=== PATIENT | female | born 1960 | race Caucasian/White ===

== ENCOUNTER 2020-06-10 12:01 | Emergency (ER) | payer OTHER, SELFPAY ==
[2020-06-10 12:27] VITALS: BP 119/84; PULSE 90; RESP 16; TEMP 37.3; O2SAT 99
--- NOTE | 2020-06-10 12:41 | ED.GENADULT ---
HPI - General Adult General Chief complaint: Ear Stated complaint: Ear pain Time Seen by Provider: 06/10/20 12:41 Source: patient and RN notes reviewed Mode of arrival: ambulatory Limitations: no limitations History of Present Illness HPI narrative: 60-year-old female presents with complaints of left otalgia, nasal congestion, and rhinorrhea for the past 2 days. Symptoms increased over the past 24 hours with clogging feeling, echoing, and popping. Denies drainage, decrease hearing, or tinnitus. Denies injury to ear. Rhinorrhea and nasal congestion. Denies cough and chest congestion. No high fevers or chills. Denies nausea, vomiting, and dizziness. LMP, Post-menopausal. The patient reports she have not been diagnosed with COVID-19. The patient reports she is not waiting for the results of a COVID-19 lab test. The patient reports she do not have fever, chills, weakness, fatigue, myalgia, or facial swelling. The patient reports she do not have a new or worsening cough or shortness of breath. Denies chest pain. The patient reports she do not have any loss of taste, sore throat, and diarrhea. Tolerating po intake well. Denies recent traveling. Denies concerns for COVID-19 or exposures been home with limited outdoor exposure except for essential household needs and return home. At this time, patient is not suspected of having COVID-19. Some parts of this dictation were generated by voice recognition software and may contain typographical and/or grammatical inaccuracies. Related Data Home Medications Medication Instructions Recorded Confirmed acyclovir 400 mg PO DIRECTED 06/10/20 06/10/20 cyclobenzaprine 10 mg PO DIRECTED 06/10/20 06/10/20 fluoxetine 40 mg PO DAILY 06/10/20 06/10/20 gabapentin 100 mg PO DAILY 06/10/20 06/10/20 hydrocodone-acetaminophen 1 tablet PO DIRECTED 06/10/20 06/10/20 hydroxyzine HCl 50 mg PO DIRECTED 06/10/20 06/10/20 meloxicam 15 mg PO DIRECTED 06/10/20 06/10/20 olanzapine 10 mg PO DIRECTED 06/10/20 06/10/20 trazodone 100 mg PO DIRECTED 06/10/20 06/10/20 Allergies Allergy/AdvReac Type Severity Reaction Status Date / Time No Known Allergies Allergy Unverified 06/10/20 12:20 Review of Systems Review of Systems: Narrative: CONSTITUTIONAL: Denies fever, chills, sweats. EYES: Denies visual changes, redness, discharge. ENT: Denies sore throat, ear drainage. Complains of left otalgia, nasal congestion, and rhinorrhea. CARDIOVASCULAR: Denies chest pain, palpitations, edema. RESPIRATORY: Denies dyspnea, wheezing, cough. GASTROINTESTINAL: Denies abdominal pain, nausea, vomiting, diarrhea. GENITOURINARY: Denies dysuria, hematuria, abnormal discharge. SKIN: Denies rash or itching. MUSCULOSKELETAL: Denies acute back pain, joint pain, or myalgia. NEUROLOGIC: Denies numbness or focal weakness. PSYCHIATRIC: Denies anxiety or depression. All systems reviewed & are unremarkable except as noted in HPI and below. [facility] Past Medical History Medical History (Updated 06/10/20 @ 14:26 by MONET Alegria) Anxiety Back pain Jones's esophagus COPD (chronic obstructive pulmonary disease) Depression Emphysema lung Hernia Hypercholesteremia Pancreatitis Peripheral neuropathy Post-menopausal Pulmonary embolism X2 in 2014 Sleep apnea Surgical History Surgical History (Updated 06/10/20 @ 14:24 by MONET Alegria) History of biopsy Lesion of the soft palate History of cervical spinal surgery L5-S1 fusion Family History Family History Father Family history of lung cancer, Onset Age: 80 Social History Social History Smoking status: Never smoker Second hand tobacco smoke exposure: Yes Alcohol intake: never Comments At time of signature, I have reviewed and agree with nursing past medical, surgical, social, and family histo
== END 2020-06-10 12:53 | disposition home or self-care (01) ==
PROVIDERS: Emergency Provider Nurse Practitioner Family; PCP Internal Medicine Gastroenterology
DX: H66.002 Acute suppurative otitis media without spontaneous rupture of ear drum, left ear (principal); F41.9 Anxiety disorder, unspecified; F32.9 Major depressive disorder, single episode, unspecified; K22.70 Barrett's esophagus without dysplasia; J44.9 Chronic obstructive pulmonary disease, unspecified; E78.00 Pure hypercholesterolemia, unspecified; G62.9 Polyneuropathy, unspecified; Z86.711 Personal history of pulmonary embolism; G47.30 Sleep apnea, unspecified
CPT/HCPCS: 99213; G0463

== ENCOUNTER 2021-01-31 09:25 | Outpatient (CLI) | payer OTHER, SELFPAY ==
--- NOTE | ~2021-01-31 | US_ITS ---
EXAMINATION: US soft tissue upper back EXAM DATE: 01/31/2021 10:24 INDICATION: Subcutaneous mass right upper back, lump. Tenderness. TECHNIQUE: Multiple grayscale and Doppler images of the symptomatic right back region were obtained ( by a technologist who performed the scan) and subsequently reviewed. There is no prior study for yaz godoy. FINDINGS: Scanning in the area of concern demonstrates subcutaneous region, between the skin and musculature de ep to this, appears to be focal region of similar echogenicity to the small amount of subcutaneous fa t. Region measures 4.0 x 5.2 x 0.8 cm, and appears to cause mass effect on the musculature. Vasculari ty was demonstrated. Most likely an encapsulated lipoma but please clinically correlate. 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 Reviewed, dictated and finalized at location A.
== END 2021-01-31 09:26 | disposition home or self-care (01) ==
PROVIDERS: PCP Internal Medicine Gastroenterology; Visit Provider Internal Medicine Gastroenterology
DX: R22.9 Localized swelling, mass and lump, unspecified (principal)
CPT/HCPCS: 76604

== ENCOUNTER 2021-02-24 14:29 | Outpatient (CLI) | payer OTHER, SELFPAY ==
--- NOTE | ~2021-02-24 | CT_ITS ---
EXAMINATION: CT diagnostic chest w con DATE: 02/24/2021 15:18 INDICATION: Posterior upper chest mass. History of emphysema. TECHNIQUE: Computed tomography (CT) of the chest was performed with 75 cc Omnipaque 350 intravenous c ontrast. The dose-length product was 142.39 mGy-cm. Automated exposure control and iterative reconstr uction technique were employed. COMPARISON: CT dated 12/11/2013 FINDINGS: No thoracic lymphadenopathy. No evidence for aortic aneurysm or dissection. Heart size norm al. No significant pleural or pericardial effusion. No soft tissue mass is identified. There are glan d is unremarkable. There is emphysema. There is atelectasis of the lung bases. There is calcified gra nuloma in the left lower lung zone. There are calcified mediastinal lymph nodes, consistent with lunchroom mother william granulomatous disease. No pneumothorax. No endobronchial lesions. No thoracic lymphadenopathy. No focal soft tissue masses are identified. Fatty infiltration of the liver. Otherwise, the upper abdom en is unremarkable. IMPRESSION: 1. No focal soft tissue mass is identified. 2: Emphysema. 3: Atelectasis the lung bases. 4: Hepatic steatosis. Reviewed, dictated and finalized at location B.
== END 2021-02-24 14:30 | disposition home or self-care (01) ==
PROVIDERS: PCP Internal Medicine Gastroenterology
DX: R22.2 Localized swelling, mass and lump, trunk (principal); K76.0 Fatty (change of) liver, not elsewhere classified; J43.9 Emphysema, unspecified
CPT/HCPCS: 71260; Q9967

== ENCOUNTER 2023-02-16 10:39 | Emergency (ER) | payer OTHER, SELFPAY ==
--- NOTE | 2023-02-16 10:41 | ED.URI ---
HPI - URI/Sore Throat General Chief Complaint: Upper Respiratory Infection Stated Complaint: Sore Throat Time Seen by Provider: 02/16/23 10:41 Source: patient Mode of arrival: ambulatory Limitations: no limitations History of Present Illness HPI Narrative: Patient is a 62-year-old female who presents with several days of throat irritation followed by increased pain this morning. Patient reports mild discomfort to left ear related to left-sided throat pain. Patient has gargled warm salt water with only mild relief. Patient has not taken any [id number] medication. Reports history of tonsillitis. History of emphysema with chronic cough Related Data Home Medications Medication Instructions Recorded Confirmed acyclovir 400 mg tablet 400 mg PO DIRECTED 06/10/20 02/16/23 cyclobenzaprine 10 mg tablet 10 mg PO DIRECTED 06/10/20 02/16/23 fluoxetine 40 mg capsule 40 mg PO DAILY 06/10/20 02/16/23 hydrocodone 7.5 mg-acetaminophen 1 tablet PO DIRECTED 06/10/20 02/16/23 325 mg tablet hydroxyzine HCl 50 mg tablet 50 mg PO DIRECTED 06/10/20 02/16/23 olanzapine 10 mg tablet 10 mg PO DIRECTED 06/10/20 02/16/23 trazodone 100 mg tablet 100 mg PO DIRECTED 06/10/20 02/16/23 albuterol sulfate 90 mcg/actuation 90 mcg inhalation DIRECTED 02/16/23 02/16/23 aerosol inhaler atorvastatin 20 mg tablet 20 mg DIRECTED 02/16/23 02/16/23 Allergies Allergy/AdvReac Type Severity Reaction Status Date / Time No Known Allergies Allergy Unverified 06/10/20 12:20 Review of Systems Review of Systems: All systems reviewed & are unremarkable except as noted in HPI and below Constitutional: Constitutional: Denies body ache(s), Denies chills, Denies fatigue, Denies fever(s), Denies headache(s), Denies malaise and Denies weakness Eyes: Eyes: Denies blurry vision, Denies itchy eyes and Denies loss of vision ENT: Reports otalgia, Denies headache(s), Denies nasal congestion, Denies sinus pain and Reports sore throat Cardiovascular: Cardiovascular: Denies chest pain, Denies irregular heart rhythm and Denies dyspnea Respiratory: Respiratory: Reports cough and Denies dyspnea Gastrointestinal: Gastrointestinal: Denies abdominal pain, Denies diarrhea, Denies nausea and Denies vomiting Musculoskeletal: Musculoskeletal: Denies back pain, Denies myalgias and Denies arthralgias Integumentary/Breasts: Skin/Breast: Denies pruritus and Denies rash Neurologic: Denies headache(s), Denies loss of vision and Denies weakness Psychiatric: Psychiatric: Reports no additional psychiatric complaints Endocrine: Endocrine: Denies fatigue Allergic/Immunologic: Allergic/Immunologic: Denies itchy eyes PMFSH Past Medical History Medical History (Updated 02/16/23 @ 11:04 by Lesley House, MADONNA) Anxiety Back pain Jones's esophagus COPD (chronic obstructive pulmonary disease) Depression Emphysema lung Hernia Hypercholesteremia Pancreatitis Peripheral neuropathy Post-menopausal Pulmonary embolism X2 in 2013 Sleep apnea Surgical History Surgical History (Updated 06/10/20 @ 14:24 by MONET Alegria) History of biopsy Lesion of the soft palate History of cervical spinal surgery L5-S1 fusion Family History Family History Father Family history of lung cancer, Onset Age: 80 Social History Social History Smoking status: Never smoker Second hand tobacco smoke exposure: Yes Alcohol intake: never Comments At time of signature, agree with nursing past medical, surgical, social and family history. There is no relevant family history pertinent to the presenting complaint. Exam Const: General: cooperative, healthy appearing, comfortable, no acute distress and well nourished Nutritional Appearance: well nourished Orientation/consciousness: patient oriented x3 Limitations: no limitations
[2023-02-16 10:50] VITALS: BP 122/79; PULSE 86; RESP 12; TEMP 37.5; O2SAT 97
== END 2023-02-16 11:09 | disposition home or self-care (01) ==
PROVIDERS: Emergency Provider Nurse Practitioner Family; PCP Internal Medicine Gastroenterology
DX: J03.90 Acute tonsillitis, unspecified (principal); F41.9 Anxiety disorder, unspecified; F32.A Depression, unspecified; J43.9 Emphysema, unspecified; Z79.891 Long term (current) use of opiate analgesic
CPT/HCPCS: 87081; 87880; 99213; G0463

== ENCOUNTER 2023-11-29 15:08 | Emergency (ER) | payer OTHER, SELFPAY ==
[2023-11-29 15:21] VITALS: BP 133/75; PULSE 89; RESP 16; TEMP 37.6; O2SAT 97
--- NOTE | 2023-11-29 15:28 | ED.DENTAL ---
HPI - Dental/Oral General Chief complaint: Dental/Oral Stated complaint: thrush Time Seen by Provider: 11/29/23 15:29 Source: patient Mode of arrival: ambulatory Limitations: no limitations History of Present Illness HPI Narrative: Leah hudson is a 63-year-old female patient presenting to the clinic today with complaints of possible thrush-reports this has been going on for the last 1-2 days. States she is just finished up to rounds of antibiotics and is using her albuterol inhaler for bronchitis. Related Data Home Medications Medication Instructions Recorded Confirmed acyclovir 400 mg tablet 400 mg PO DIRECTED 06/10/20 11/29/23 cyclobenzaprine 10 mg tablet 10 mg PO DIRECTED 06/10/20 11/29/23 fluoxetine 40 mg capsule 40 mg PO DAILY 06/10/20 11/29/23 hydrocodone 7.5 mg-acetaminophen 1 tablet PO DIRECTED 06/10/20 11/29/23 325 mg tablet hydroxyzine HCl 50 mg tablet 50 mg PO DIRECTED 06/10/20 11/29/23 olanzapine 10 mg tablet 10 mg PO DIRECTED 06/10/20 11/29/23 trazodone 100 mg tablet 100 mg PO DIRECTED 06/10/20 11/29/23 albuterol sulfate 90 mcg/actuation 90 mcg inhalation DIRECTED 02/16/23 11/29/23 aerosol inhaler atorvastatin 20 mg tablet 20 mg DIRECTED 02/16/23 11/29/23 cetirizine 10 mg tablet 10 mg PO DAILY 11/29/23 11/29/23 omeprazole 40 mg capsule,delayed 40 mg PO DAILY 11/29/23 11/29/23 release primidone 50 mg tablet 50 mg PO DAILY 11/29/23 11/29/23 Allergies Allergy/AdvReac Type Severity Reaction Status Date / Time No Known Allergies Allergy Verified 11/29/23 15:11 Review of Systems Review of Systems: Pertinent positives per HPI. Patient denies any fever, chills, rash, headache, visual changes, dizziness, cough, runny nose, sore throat, shortness of breath, chest pain, palpitations, nausea, vomiting, diarrhea, constipation, abdominal pain, or any urinary issues. PMFSH Past Medical History Medical History Anxiety Back pain Jones's esophagus COPD (chronic obstructive pulmonary disease) Depression Emphysema lung Hernia Hypercholesteremia Pancreatitis Peripheral neuropathy Post-menopausal Pulmonary embolism X2 in 2014 Sleep apnea Surgical History Surgical History History of biopsy Lesion of the soft palate History of cervical spinal surgery L5-S1 fusion Family History Family History Father Family history of lung cancer, Onset Age: 80 Social History Social History Smoking status: Never smoker Second hand tobacco smoke exposure: Yes Alcohol intake: never Comments At the time of my signature, I reviewed and agree with the nursing past medical, surgical, social, and family history. There is no relevant family history pertinent to the patient complaint. Exam Narrative: General: Well-developed, well nourished, in no apparent distress Head: Normocephalic, atraumatic Eyes: Pupils equally round and reactive to light bilaterally, EOM intact, sclera and conjunctive clear, no discharge, lids normal Ears: TMs intact and clear, ear canals clear, no drainage, grossly hearing normal. Nose: Nares patent, no discharge, no inflammation, no sinus tenderness. Mouth: Oropharynx without lesions or masses, good dentition, MMM. Neck: Supple, trachea midline, no enlargement of anterior or posterior cervical nodes, no thyroid masses or goiter palpable. Cardio: Regular rate and rhythm, s1 and s2 normal, no murmur appreciated. Resp: Clear to auscultation bilaterally anteriorly and posteriorly, no rhonchi, rales, wheezing or rubs Course Course Emergency Course: Portions of this record may have been created with voice recognition software. Level of Care: Express Care Visit Vital Signs Vital signs: Vital Signs
== END 2023-11-29 15:47 | disposition home or self-care (01) ==
PROVIDERS: Emergency Provider Nurse Practitioner Family; PCP Internal Medicine Gastroenterology
DX: B37.0 Candidal stomatitis (principal); K22.70 Barrett's esophagus without dysplasia; J44.9 Chronic obstructive pulmonary disease, unspecified; E78.00 Pure hypercholesterolemia, unspecified; G62.9 Polyneuropathy, unspecified; F32.A Depression, unspecified; F41.9 Anxiety disorder, unspecified; Z86.711 Personal history of pulmonary embolism
CPT/HCPCS: 99213; G0463

== ENCOUNTER 2024-02-06 07:37 | Outpatient (CLI) | payer OTHER, SELFPAY ==
--- NOTE | ~2024-02-06 | CT_ITS ---
CT Scan of the Chest without Contrast: Clinical Indication: Lung cancer screening, nicotine dependence Technique: Contiguous sections were acquired throughout the chest without intravenous contrast. Dose reduction technique was used on this scan by utilizing automated exposure control and iterative recon struction technique. The dose-length product (DLP) was 67.31 mGy-cm. COMPARISON: 02/24/2021 Findings: There is no evidence of any significant mediastinal, hilar or axillary lymphadenopathy. The mediastin al soft tissues appear normal. There is no evidence of pleural or pericardial effusion. Moderate emphysema present. Stable 2 mm right middle lobe pulmonary nodule present. Calcified left lo wer lobe granuloma present. Images through the upper abdomen reveal no abnormalities. Impression: Lung RADS 2: Benign appearance. 12 month follow-up screening CT advised. Moderate emphysema. Reviewed, dictated and finalized at [facility]. Impression: Lung RADS 2: Benign appearance. 12 month follow-up screening CT advised. Moderate emphysema.
== END 2024-02-06 07:38 | disposition home or self-care (01) ==
PROVIDERS: PCP Internal Medicine Gastroenterology
DX: Z12.2 Encounter for screening for malignant neoplasm of respiratory organs (principal); J43.9 Emphysema, unspecified; Z72.0 Tobacco use
CPT/HCPCS: 71271

== ENCOUNTER 2024-02-19 08:11 | Outpatient (CLI) | payer OTHER, SELFPAY ==
--- NOTE | 2024-02-19 10:42 | P.PCNPFT_ITS ---
PFT Procedure Performed PFT Procedure Performed Plethysmography (Lung Vol) Diffusing Cap (DLCO) Flow Vol Loop Spirometry w/o Bronchodil PFT Interpretation Lung volumes were measured with the body plethysmography method. Lung volumes are unremarkable. Spirometry showed normal expiratory flow rates and a dimin ished FEV1 to FVC ratio 51%, indicative of obstructive airway disease. No post bronchodilator study was conducted. Lung diffusion capacity is severely reduced at 42% predicted. The diminished lung diffusion capacity coupled with the normal alveolar volume in the current setting may indicate emphysema with preserved lung volume, pulmonary vascular abnormality or anemia. Clinical correlation advised. The flow-volume loop is consistent with emphysema. Impression: Mild obstructive airway disease. Severely reduced lung diffusion capacity.
== END 2024-02-19 08:12 | disposition home or self-care (01) ==
LOC: ANHPFT 08:13
PROVIDERS: PCP Internal Medicine Gastroenterology
DX: Z72.0 Tobacco use (principal); R94.2 Abnormal results of pulmonary function studies
CPT/HCPCS: 94375; 94726; 94729

== ENCOUNTER 2024-04-16 08:25 | Emergency (ER) | payer OTHER, SELFPAY ==
[2024-04-16 08:41] VITALS: BP 151/95; PULSE 60; RESP 16; TEMP 37.2; O2SAT 98
[2024-04-16 08:44] VITALS: BP 151/95; PULSE 60; RESP 16; TEMP 37.2; O2SAT 98
--- NOTE | 2024-04-16 08:45 | ED.DENTAL ---
HPI - Dental/Oral General Chief complaint: Dental/Oral Stated complaint: Dental Pain Time Seen by Provider: 04/16/24 08:45 Source: patient, RN notes reviewed and old records reviewed Mode of arrival: ambulatory Limitations: no limitations History of Present Illness HPI Narrative: Patient presents with complaints of right-sided lower dental pain that extends to the ear. She reports that this has been present for approximately 3 days, worsening. She has been taking ibuprofen with moderate relief. She denies any fever, chills, sweats. She denies injury or trauma. She denies any active drainage. She denies any fever, chills, sweats. She is able to eat and drink, but she cannot chew on the right side secondary to pain. She is able to manage her own secretions. No drooling. There is no facial or neck swelling. She voices no other concerns or complaints today. She reports she did try to go to the dentist, but cannot get an appointment for 4 months Related Data Home Medications Medication Instructions Recorded Confirmed acyclovir 400 mg tablet 400 mg PO DIRECTED 06/10/20 04/16/24 cyclobenzaprine 10 mg tablet 10 mg PO DIRECTED 06/10/20 04/16/24 fluoxetine 40 mg capsule 40 mg PO DAILY 06/10/20 04/16/24 hydrocodone 7.5 mg-acetaminophen 1 tablet PO DIRECTED 06/10/20 04/16/24 325 mg tablet hydroxyzine HCl 50 mg tablet 50 mg PO DIRECTED 06/10/20 04/16/24 olanzapine 10 mg tablet 10 mg PO DIRECTED 06/10/20 04/16/24 trazodone 100 mg tablet 100 mg PO DIRECTED 06/10/20 04/16/24 albuterol sulfate 90 mcg/actuation 90 mcg inhalation DIRECTED 02/16/23 04/16/24 aerosol inhaler atorvastatin 20 mg tablet 20 mg DIRECTED 02/16/23 04/16/24 cetirizine 10 mg tablet 10 mg PO DAILY 11/29/23 04/16/24 omeprazole 40 mg capsule,delayed 40 mg PO DAILY 11/29/23 04/16/24 release primidone 50 mg tablet 50 mg PO DAILY 11/29/23 04/16/24 Allergies Allergy/AdvReac Type Severity Reaction Status Date / Time No Known Allergies Allergy Verified 04/16/24 08:42 Review of Systems Review of Systems: All systems reviewed & are unremarkable except as noted in HPI and below Constitutional: Constitutional: Reports no additional constitutional complaints ENT: Reports system reviewed and no additional complaints, except as documented, Reports dental pain, Denies dysphagia, Reports otalgia, Reports facial pain, Denies lip swelling and Denies tongue swelling Cardiovascular: Cardiovascular: Reports no additional cardiovascular complaints Respiratory: Respiratory: Reports no additional respiratory complaints Gastrointestinal: Gastrointestinal: Reports no additional gastrointestinal complaints [facility] Past Medical History Medical History Anxiety Back pain Jones's esophagus COPD (chronic obstructive pulmonary disease) Depression Emphysema lung Hernia Hypercholesteremia Pancreatitis Peripheral neuropathy Post-menopausal Pulmonary embolism X2 in 2013 Sleep apnea Surgical History Surgical History History of biopsy Lesion of the soft palate History of cervical spinal surgery L5-S1 fusion Family History Family History Father Family history of lung cancer, Onset Age: 80 Social History Social History Smoking status: Never smoker Second hand tobacco smoke exposure: Yes Alcohol intake: never Comments At the time of my signature, I reviewed and agree with the nursing past medical, surgical, social, and family history. There is no relevant family history pertinent to the patient complaint. Exam Const: General: cooperative, no acute distress, alert and awake Orientation/consciousness: oriented to person, oriented to place and oriented to time HENMT: Head: normal to inspection Ears:
== END 2024-04-16 09:00 | disposition home or self-care (01) ==
PROVIDERS: Emergency Provider Nurse Practitioner Family; PCP Internal Medicine Gastroenterology
DX: K04.7 Periapical abscess without sinus (principal); K22.70 Barrett's esophagus without dysplasia; J44.9 Chronic obstructive pulmonary disease, unspecified; E78.00 Pure hypercholesterolemia, unspecified; G62.9 Polyneuropathy, unspecified; Z86.711 Personal history of pulmonary embolism; F41.9 Anxiety disorder, unspecified; F32.A Depression, unspecified
CPT/HCPCS: 99213; G0463

== ENCOUNTER 2024-04-20 08:23 | Emergency (ER) | payer OTHER, SELFPAY ==
[2024-04-20 08:31] VITALS: BP 126/76; PULSE 84; RESP 18; TEMP 37.1; O2SAT 98
--- NOTE | 2024-04-20 08:34 | ED.GENADULT ---
HPI - General Adult General Chief complaint: Extremity Problem,Nontraumatic Stated complaint: Left Hand Finger Pain Source: patient Mode of arrival: ambulatory Limitations: no limitations History of Present Illness HPI narrative: 63-year-old female presented for c/o left thumb pain with green skin near the nail bed. She first noticed this about a 10 days ago and thought it was a hangnail, trimmed the skin with cuticle scissors. Over the last 4 days it has gotten worse. She has been putting Neosporin and hydrogen peroxide on it. She denies any discharge, fevers, or chills. Currently taking amoxicillin as prescribed 04/16 for dental infection. Related Data Home Medications Medication Instructions Recorded Confirmed acyclovir 400 mg tablet 400 mg PO DIRECTED 06/10/20 04/20/24 cyclobenzaprine 10 mg tablet 10 mg PO DIRECTED 06/10/20 04/20/24 fluoxetine 40 mg capsule 40 mg PO DAILY 06/10/20 04/20/24 hydrocodone 7.5 mg-acetaminophen 1 tablet PO DIRECTED 06/10/20 04/20/24 325 mg tablet hydroxyzine HCl 50 mg tablet 50 mg PO DIRECTED 06/10/20 04/20/24 olanzapine 10 mg tablet 10 mg PO DIRECTED 06/10/20 04/20/24 trazodone 100 mg tablet 100 mg PO DIRECTED 06/10/20 04/20/24 albuterol sulfate 90 mcg/actuation 90 mcg inhalation DIRECTED 02/16/23 04/20/24 aerosol inhaler atorvastatin 20 mg tablet 20 mg DIRECTED 02/16/23 04/20/24 cetirizine 10 mg tablet 10 mg PO DAILY 11/29/23 04/20/24 omeprazole 40 mg capsule,delayed 40 mg PO DAILY 11/29/23 04/20/24 release primidone 50 mg tablet 50 mg PO DAILY 11/29/23 04/20/24 Allergies Allergy/AdvReac Type Severity Reaction Status Date / Time No Known Allergies Allergy Verified 04/20/24 08:26 Review of Systems Review of Systems: CONSTITUTIONAL: Denies body aches, fever, chills, or sweats. EYES: Denies visual changes, redness, or discharge. ENT: Denies rhinorrhea, congestion CARDIOVASCULAR: Denies chest pain, palpitations, or edema. RESPIRATORY: Denies cough or dyspnea. GASTROINTESTINAL: Denies abdominal pain, nausea, vomiting, or diarrhea. SKIN: Reports pain to the left thumb. Denies rash. MUSCULOSKELETAL: Denies back pain, joint pain, or myalgia. NEUROLOGIC: Denies headache, numbness, tingling, or weakness. [facility] Past Medical History Medical History Anxiety Back pain Jones's esophagus COPD (chronic obstructive pulmonary disease) Depression Emphysema lung Hernia Hypercholesteremia Pancreatitis Peripheral neuropathy Post-menopausal Pulmonary embolism X2 in 2014 Sleep apnea Surgical History Surgical History History of biopsy Lesion of the soft palate History of cervical spinal surgery L5-S1 fusion Family History Family History Father Family history of lung cancer, Onset Age: 80 Social History Social History Smoking status: Never smoker Second hand tobacco smoke exposure: Yes Alcohol intake: never Comments At time of signature, I have reviewed and agree with nursing past medical, surgical, social and family history unless otherwise noted. Please see nursing chart for further information. There is no relevant family history pertinent to the presenting complaint Exam Narrative: GENERAL: Well-appearing. No apparent distress. HEAD: Normocephalic, atraumatic. EYES: Conjunctivae clear and EOMI. NECK: Supple. CHEST: Clear to auscultation. HEART: Regular rate and rhythm. S1 and S2 noted. SKIN: Warm, dry, and intact. Small green pustule on the ulnar aspect of the left 1st digit nailbed, no active drainage, mild tenderness with palpation. NEURO: Alert and oriented x3. Course Course Emergency Course: Patient is aware of diagnosis, understands and agrees to treatment plan. Anticipatory guid
== END 2024-04-20 09:05 | disposition home or self-care (01) ==
PROVIDERS: Emergency Provider Nurse Practitioner Family; PCP Internal Medicine Gastroenterology
DX: L03.012 Cellulitis of left finger (principal); K22.70 Barrett's esophagus without dysplasia; J44.9 Chronic obstructive pulmonary disease, unspecified; E78.00 Pure hypercholesterolemia, unspecified; Z86.711 Personal history of pulmonary embolism; F41.9 Anxiety disorder, unspecified; F32.A Depression, unspecified; G62.9 Polyneuropathy, unspecified
CPT/HCPCS: 10060; 99212; G0463

== ENCOUNTER 2024-07-06 08:08 | Emergency (ER) | payer OTHER, SELFPAY ==
--- NOTE | 2024-07-06 08:19 | ED.DENTAL ---
HPI - Dental/Oral General Chief complaint: Dental/Oral Stated complaint: thrush Time Seen by Provider: 07/06/24 08:19 Source: patient Mode of arrival: ambulatory Limitations: no limitations History of Present Illness HPI Narrative: 64 yo F presents with c/o soreness to tongue with white lesions. States mouth feels thick. Denies sore throat. hx of thrush. States that she has been rinsing after using her inhalers. All Systems reviewed and negative except as noted above. Related Data Home Medications Medication Instructions Recorded Confirmed acyclovir 400 mg tablet 400 mg PO DIRECTED 06/10/20 07/06/24 cyclobenzaprine 10 mg tablet 10 mg PO DIRECTED 06/10/20 07/06/24 fluoxetine 40 mg capsule 40 mg PO DAILY 06/10/20 07/06/24 hydrocodone 7.5 mg-acetaminophen 1 tablet PO DIRECTED 06/10/20 07/06/24 325 mg tablet hydroxyzine HCl 50 mg tablet 50 mg PO DIRECTED 06/10/20 07/06/24 olanzapine 10 mg tablet 10 mg PO DIRECTED 06/10/20 07/06/24 trazodone 100 mg tablet 100 mg PO DIRECTED 06/10/20 07/06/24 albuterol sulfate 90 mcg/actuation 90 mcg inhalation DIRECTED 02/16/23 07/06/24 aerosol inhaler atorvastatin 20 mg tablet 20 mg DIRECTED 02/16/23 07/06/24 cetirizine 10 mg tablet 10 mg PO DAILY 11/29/23 07/06/24 omeprazole 40 mg capsule,delayed 40 mg PO DAILY 11/29/23 07/06/24 release primidone 50 mg tablet 50 mg PO DAILY 11/29/23 07/06/24 Allergies Allergy/AdvReac Type Severity Reaction Status Date / Time No Known Allergies Allergy Verified 07/06/24 08:13 Review of Systems Review of Systems: CONSTITUTIONAL: Denies fever, chills, or sweats. EYES: Denies visual changes, redness, or discharge. ENT: Denies rhinorrhea, congestion, sore throat, or otalgia. reports white lesions and soreness to tongue. CARDIOVASCULAR: Denies chest pain, palpitations, or edema. RESPIRATORY: Denies cough or dyspnea. GASTROINTESTINAL: Denies abdominal pain, nausea, vomiting, or diarrhea. GENITOURINARY: Denies dysuria or hematuria. SKIN: Denies rash or itching. MUSCULOSKELETAL: Denies back pain, joint pain, or myalgia. NEUROLOGIC: Denies headache, numbness, or weakness. PSYCHIATRIC: Denies anxiety or depression. All other systems reviewed are negative, except as documented in HPI. [facility] Past Medical History Medical History Anxiety Back pain Jones's esophagus COPD (chronic obstructive pulmonary disease) Depression Emphysema lung Hernia Hypercholesteremia Pancreatitis Peripheral neuropathy Post-menopausal Pulmonary embolism X2 in 2014 Sleep apnea Surgical History Surgical History History of biopsy Lesion of the soft palate History of cervical spinal surgery L5-S1 fusion Family History Family History Father Family history of lung cancer, Onset Age: 80 Social History Social History Smoking status: Never smoker Second hand tobacco smoke exposure: Yes Alcohol intake: never Comments At time of signature, agree with nursing past medical, surgical, social and family history. There is no relevant family history pertinent to the presenting complaint. Exam Narrative: GENERAL: This is a well-nourished, well-developed patient, in no apparent distress. HEAD: normocephalic, atraumatic. EYES: PERRL. Sclera clear/white. Vision is grossly intact. EARS: External ears normal NOSE: External nose normal MOUTH: thick white plaques to tongue NECK: Neck supple, non-tender without lymphadenopathy, masses or thyromegaly. CARDIOVASCULAR: Regular rate and rhythm without murmurs, gallops, or rubs. RESPIRATORY: Clear to auscultation. Breath sounds equal bilaterally. No wheezes, rales, or rhonchi. SKIN: warm, Dry, intact with no suspicious lesions or rash, good texture and turgor.
[2024-07-06 08:20] VITALS: BP 116/60; PULSE 50; RESP 16; TEMP 36; O2SAT 96
== END 2024-07-06 08:33 | disposition home or self-care (01) ==
PROVIDERS: Emergency Provider Nurse Practitioner Family; PCP Internal Medicine Gastroenterology
DX: B37.0 Candidal stomatitis (principal); K22.70 Barrett's esophagus without dysplasia; J44.9 Chronic obstructive pulmonary disease, unspecified; E78.00 Pure hypercholesterolemia, unspecified; G62.9 Polyneuropathy, unspecified; Z86.711 Personal history of pulmonary embolism; F41.9 Anxiety disorder, unspecified; F32.A Depression, unspecified
CPT/HCPCS: 99213; G0463

== ENCOUNTER 2024-09-26 10:54 | Emergency (ER) | payer OTHER, SELFPAY ==
[2024-09-26 11:00] VITALS: BP 128/96; PULSE 100; RESP 16; TEMP 37.3; O2SAT 99
--- NOTE | 2024-09-26 11:07 | ED.FEMALEGU ---
HPI - Female Genitourinary General Chief complaint: Urogenital-Female Stated complaint: UTI Time Seen by Provider: 09/26/24 11:10 Source: patient, RN notes reviewed and old records reviewed Mode of arrival: ambulatory Limitations: no limitations History of Present Illness HPI Narrative: 64-year-old female presents to the [facility] with concerns for a UTI. Patient reports that she did give a urine sample for her primary and was told she had E coli. Primary is not called in an antibiotic. Patient reports burning, urgency, frequency for 2 weeks. Related Data Home Medications ?Medication ?Instructions ?Recorded ?Confirmed ?Last Taken ?Type cyclobenzaprine 10 mg tablet 10 mg PO DIRECTED 06/10/20 07/06/24 Unknown History fluoxetine 40 mg capsule 40 mg PO DAILY 06/10/20 07/06/24 Unknown History hydrocodone 7.5 mg-acetaminophen 1 tablet PO DIRECTED 06/10/20 07/06/24 Unknown History 325 mg tablet hydroxyzine HCl 50 mg tablet 50 mg PO DIRECTED 06/10/20 07/06/24 Unknown History olanzapine 10 mg tablet 10 mg PO DIRECTED 06/10/20 07/06/24 Unknown History trazodone 100 mg tablet 100 mg PO DIRECTED 06/10/20 07/06/24 Unknown History albuterol sulfate 90 mcg/actuation 90 mcg inhalation DIRECTED 02/16/23 07/06/24 Unknown History aerosol inhaler atorvastatin 20 mg tablet 20 mg DIRECTED 02/16/23 07/06/24 Unknown History omeprazole 40 mg capsule,delayed 40 mg PO DAILY 11/29/23 07/06/24 Unknown History release primidone 50 mg tablet 50 mg PO DAILY 11/29/23 07/06/24 Unknown History Allergies Allergy/AdvReac Type Severity Reaction Status Date / Time No Known Allergies Allergy Verified 09/26/24 10:58 Review of Systems Review of Systems: All systems reviewed & are unremarkable except as noted in HPI and below Constitutional: Constitutional: Reports no additional constitutional complaints ENT: Reports system reviewed and no additional complaints, except as documented Cardiovascular: Cardiovascular: Reports no additional cardiovascular complaints, Denies chest pain and Denies dyspnea Respiratory: Respiratory: Reports no additional respiratory complaints, Denies chest congestion, Denies cough and Denies dyspnea Genitourinary: Genitourinary: Reports as per HPI Musculoskeletal: Musculoskeletal: Reports no additional musculoskeletal complaints Integumentary/Breasts: Skin/Breast: Reports system reviewed and no additional complaints, except [facility] docu [facility] Past Medical History Medical History Depression Anxiety Post-menopausal Back pain Jones's esophagus Pancreatitis Hernia Sleep apnea Pulmonary embolism X2 in 2014 Emphysema lung COPD (chronic obstructive pulmonary disease) Hypercholesteremia Peripheral neuropathy Surgical History Surgical History History of biopsy Lesion of the soft palate History of cervical spinal surgery L5-S1 fusion Family History Family History Father Family history of lung cancer, Onset Age: 80 Social History Social History Smoking status: Never smoker Second hand tobacco smoke exposure: Yes Alcohol intake: never Comments At the time of my signature, I reviewed and agree with the nursing past medical, surgical, social, and family history. There is no relevant family history pertinent to the patient complaint. Exam Const: General: cooperative, healthy appearing, comfortable, no acute distress, well developed, alert and well nourished Nutritional Appearance: well nourished Orientation/consciousness: patient oriented x3 Limitations: no limitations HENMT: Head: normal to inspection Eyes: General: appearance normal, both eyes and all related structures Alignment and Position: alignment normal Neck: Neck: normal visual inspection, full ROM, no lymphadenopathy and no meningeal signs Chest: Chest palpation & inspection: normal inspection of the chest Resp: Effort & Inspection: normal respiratory effort and able to speak in complete sentences Cardio: Rate: regular rate GI: GI Palp: No abdominal tenderness : General: Yes no CVA tenderness Skin: General skin exam: normal color and no rashes or lesions noted Neuro: General: patient oriented x3, gait normal, moves all extremities and no meningeal signs Cognition (Neuro): normal cognition Speech: normal speech Gait exam (Neuro): Normal gait present Extrem: General: normal to inspection, full ROM, capillary refill normal and normal gait Psych: Appearance: grossly normal and well kempt Mental Status: mental status grossly normal Speech and movement: Normal speech and movement present and Clear speech present Affect: normal affect Attitude: cooperative Course Course Level of Care: Express Care Visit Vital Signs Vital signs: Vital Signs Temperature 99.2 F 09/26/24 11:00 Pulse Rate 100 09/26/24 11:00 Respiratory Rate 16 09/26/24 11:00 Blood Pressure 128/96 H 09/26/24 11:00 Pulse Oximetry 99 09/26/24 11:00 Oxygen Delivery Room Air 09/26/24 11:00 Temperature 99.2 F 09/26/24 11:00 Pulse Rate 100 09/26/24 11:00 Respiratory Rate 16 09/26/24 11:00 Blood Pressure 128/96 H 09/26/24 11:00 Pulse Oximetry 99 09/26/24 11:00 Oxygen Delivery Room Air 09/26/24 11:00 Reviewed MDM - Female Genitourinary MDM Narrative Medical decision making narrative: Patient sitting comfortably in exam room. Nontoxic, vitals stable. Patient in no acute distress. Patient presents with 2 weeks of urinary symptoms. Patient positive for nitrates and leukocytes. Will treat with antibiotic. Will send for culture Patient appropriate for outpatient treatment with close follow-up Discharge instructions reviewed with patient, as well as provided in writing per nursing staff. The instructions also include specific and strict return/GO TO THE ER as well as f/u information. All questions have been answered, and the patient deny any further questions with discharge and discharge plan. Some parts of this dictation were generated by voice recognition software and may contain typographical and/or grammatical inaccuracies. Differential Diagnosis Differential diagnosis: Likely urinary tract infection and cystitis Lab Data Labs: Lab Results 09/26/24 Range/Units 11:07 POC Urine Color Yellow POC Urine Clarity Cloudy POC Urine pH 7.0 POC Ur Specif Hi Hat 1.020 POC Urine Protein Negative (Negative) POC Ur Glucose (UA) Negative (Negative) POC Urine Ketones Negative (Negative) POC Urine Blood Negative (Negative) POC Urine Nitrite Positive (Negative) POC Urine Bilirubin Negative (Negative) POC Urine Urobilinogen 0.2 POC U Leukocyte Esteras 1+ (Negative) Reviewed Critical Care Time Critical Care Time Critical Care Time: No Discharge Plan Discharge Clinical Impression: Urinary tract infection Qualifiers: Urinary tract infection type: acute cystitis Hematuria presence: with hematuria Qualified Code(s): N30.01 - Acute cystitis with hematuria Patient Disposition: Home, Self-Care Condition: Stable Instructions: Antibiotic Form, Urinary Tract Infection in Women (DC) Additional Instructions: Increased water intake Take Tylenol as needed for pain Take antibiotic as prescribed Today your urine dip showed a probability of a UTI. You have been prescribed an antibiotic. Your urine will be sent to our lab for a culture. If at that time a bacteria grows that is not covered by the antibiotic prescribed you will be notified. Follow-up with primary care For new or worsening symptoms go directly to the emergency room Patient Language: Latvian Prescriptions: New amoxicillin-pot clavulanate 875-125 mg tablet 1 tablet PO Q12H Qty: 10 0RF No Action fluoxetine 40 mg capsule 40 mg PO DAILY cyclobenzaprine 10 mg tablet 10 mg PO DIRECTED olanzapine 10 mg tablet 10 mg PO DIRECTED hydroxyzine HCl 50 mg tablet 50 mg PO DIRECTED trazodone 100 mg tablet 100 mg PO DIRECTED hydrocodone-acetaminophen 7.5-325 mg tablet 1 tablet PO DIRECTED primidone 50 mg tablet 50 mg PO DAILY omeprazole 40 mg capsule,delayed release(DR/EC) 40 mg PO DAILY atorvastatin 20 mg tablet 20 mg DIRECTED albuterol sulfate 90 mcg/actuation HFA aerosol inhaler 90 mcg INHALATION DIRECTED Follow-up/Referrals: Rodriguez,Long Paz MD [Primary Care Provider] - 1 Week ([facility] care follow up ) Time of Disposition: 11:17
[2024-09-26 11:11] LABS: EDUAAPPEAR Cloudy; EDUABILI Negative (Negative); EDUABLOOD Negative (Negative); EDUACOLOR1 Yellow; EDUAGLUCOSE Negative (Negative); EDUAKETONE Negative (Negative); EDUALEUKO 1+ (Negative); EDUANITRATE Positive (Negative); EDUAPROTEIN Negative (Negative); EDUAUROBILI 0.2
== END 2024-09-26 11:20 | disposition home or self-care (01) ==
PROVIDERS: Emergency Provider Nurse Practitioner; PCP Internal Medicine Gastroenterology
DX: N30.01 Acute cystitis with hematuria (principal); B96.20 Unspecified Escherichia coli [E. coli] as the cause of diseases classified elsewhere; K22.70 Barrett's esophagus without dysplasia; J44.9 Chronic obstructive pulmonary disease, unspecified; E78.00 Pure hypercholesterolemia, unspecified; G62.9 Polyneuropathy, unspecified; F41.9 Anxiety disorder, unspecified; F32.A Depression, unspecified; Z86.711 Personal history of pulmonary embolism
CPT/HCPCS: 81003; 87086; 87186; 99213; G0463

== ENCOUNTER 2024-10-10 09:51 | Emergency (ER) | payer OTHER, SELFPAY ==
--- NOTE | ~2024-10-10 | XR_ITS ---
EXAMINATION: XR foot RT min 3V DATE: 10/10/2024 10:18 INDICATION: Right foot foreign body. Great toe pain. TECHNIQUE: 4 views of right foot were obtained. COMPARISON: None. FINDINGS: Alignment is normal. No fracture. Joint spaces are normal. There is a 6 mm linear radiopaqu e foreign body in the soft tissues plantar to first distal phalanx. IMPRESSION: 1. 6 mm linear radiopaque foreign body in the soft tissues plantar to first distal phalanx. Reviewed, dictated and finalized at location B. [employer] TABLE [employer]EDER IMPRESSION: 1. 6 mm linear radiopaque foreign body in the soft tissues plantar to first dis pauline phalanx.
[2024-10-10 09:54] VITALS: BP 120/81; PULSE 83; RESP 16; TEMP 36.8; O2SAT 96
--- NOTE | 2024-10-10 10:05 | ED_ITS ---
HPI - Extremity Problem General Chief complaint: Extremity Problem,Nontraumatic Stated complaint: Right Foot Toe Pain Time Seen by Provider: 10/10/24 10:00 Source: patient, RN notes reviewed and old records reviewed Mode of arrival: ambulatory Limitations: no limitations History of Present Illness HPI Narrative: Patient presents with complaints of right great toe pain. She reports that she noted pain 4 days ago after her son broke a glass bowl. She believes she may have stepped on a piece of glass. There is no sign of injury to the foot or toe. She states that she was never bleeding, says that she chest deducted that she must have a piece of glass in her toes since pain began on the same night that the bowl was broken. Pain is worse with walking, better with rest. She has been taking hydrocodone for her symptoms with no relief Related Data Home Medications ?Medication ?Instructions ?Recorded ?Confirmed ?Last Taken ?Type cyclobenzaprine 10 mg tablet 10 mg PO DIRECTED 06/10/20 07/06/24 Unknown History fluoxetine 40 mg capsule 40 mg PO DAILY 06/10/20 07/06/24 Unknown History hydrocodone 7.5 mg-acetaminophen 1 tablet PO DIRECTED 06/10/20 07/06/24 Unknown History 325 mg tablet hydroxyzine HCl 50 mg tablet 50 mg PO DIRECTED 06/10/20 07/06/24 Unknown History olanzapine 10 mg tablet 10 mg PO DIRECTED 06/10/20 07/06/24 Unknown History trazodone 100 mg tablet 100 mg PO DIRECTED 06/10/20 07/06/24 Unknown History albuterol sulfate 90 mcg/actuation 90 mcg inhalation DIRECTED 02/16/23 07/06/24 Unknown History aerosol inhaler atorvastatin 20 mg tablet 20 mg DIRECTED 02/16/23 07/06/24 Unknown History omeprazole 40 mg capsule,delayed 40 mg PO DAILY 11/29/23 07/06/24 Unknown History release primidone 50 mg tablet 50 mg PO DAILY 11/29/23 07/06/24 Unknown History Allergies Allergy/AdvReac Type Severity Reaction Status Date / Time No Known Allergies Allergy Verified 10/10/24 09:58 Review of Systems Review of Systems: All systems reviewed & are unremarkable except as noted in HPI and below Constitutional: Constitutional: Reports no additional constitutional complaints ENT: Reports system reviewed and no additional complaints, except as documented Cardiovascular: Cardiovascular: Reports no additional cardiovascular complain ts Respiratory: Respiratory: Reports no additional respiratory complaints Gastrointestinal: Gastrointestinal: Reports no additional gastrointestinal complaints Musculoskeletal: Musculoskeletal: Reports no additional musculoskeletal compla ints and Reports as per HPI [facility] Past Medical History Medical History Depression Anxiety Post-menopausal Back pain Jones's esophagus Pancreatitis Hernia Sleep apnea Pulmonary embolism X2 in 2014 Emphysema lung COPD (chronic obstructive pulmonary disease) Hypercholesteremia Peripheral neuropathy Surgical History Surgical History History of biopsy Lesion of the soft palate History of cervical spinal surgery L5-S1 fusion Family History Family History Father Family history of lung cancer, Onset Age: 80 Social History Social History Smoking status: Never smoker Second hand tobacco smoke exposure: Yes Alcohol intake: never Comments At the time of my signature, I reviewed and agree with the nursing past medical, surgical, social, and family history. There is no relevant family history pertinent to the patient complaint. Exam Const: General: cooperative, no acute distress, alert and awake Orientation/consciousness: oriented to person, oriented to place and oriented to time HENMT: Head: normal to inspection Resp: Effort & Inspection: normal respiratory effort and able to speak in complete sentences Auscultation: clear to auscultation bilaterally, no crackles, no rales, no rhonchi and no wheezes Cardio: Palpation: normal PMI Rate: regular rate Rhythm: regular rhythm Heart sounds: S1 normal heart sound present and S2 normal heart sound present Neuro: General: oriented to person, oriented to place and oriented to time Cranial nerves: Yes CN's II-XII intact bilaterally Extrem: Right lower extremity: foot Details: normal capillary refill, normal to inspection and tenderness Location: of the great toe Location: at the proximal phalanx and along the plantar aspect Psych: Appearance: grossly normal Thought process: Normal thought process present Insight: Good insight present (Psych) Judgement: Good judgement present (Psych) Course Course Level of Care: Express Care Visit Vital Signs Vital signs: Vital Signs Temperature 98.2 F 10/10/24 09:54 Pulse Rate 83 10/10/24 09:54 Respiratory Rate 16 10/10/24 09:54 Blood Pressure 120/81 10/10/24 09:54 Pulse Oximetry 96 10/10/24 09:54 Oxygen Delivery Room Air 10/10/24 09:54 Temperature 98.2 F 10/10/24 09:54 Pulse Rate 83 10/10/24 09:54 Respiratory Rate 16 10/10/24 09:54 Blood Pressure 120/81 10/10/24 09:54 Pulse Oximetry 96 10/10/24 09:54 Oxygen Delivery Room Air 10/10/24 09:54 Reviewed MDM - Extremity (Nontraumatic) MDM Narrative Medical decision making narrative: Patient with foreign body to right great toe, very deep, no obvious injury point noted on exam. Patient referred to Podiatry. Discharge instructions reviewed with patient, as well as provided in writing per nursing staff. The instructions also include specific and strict return/GO TO THE ER as well as f/u information. All questions have been answered, and the patient deny any further questions with discharge and discharge plan. Some parts of this dictation were generated by voice recognition software and may contain typographical and/or grammatical inaccuracies. Differential Diagnosis Differential diagnosis: Likely gout and other (Fracture) Imaging Data Attestation: I personally reviewed and interpreted this imaging study as follows: My impression: Foreign body deeply embedded into right great Radiologist's impression: [facility] [address] [place] [address] XRay Report Signed Patient: Leah Castaneda : 1960 MR#: [id number] Age: 64 Acct:[id number] Loc: [facility] ADM Date: 10/10/24Attending Dr: Ordering Physician: Ann Figueroa FNP Date of Service: 10/10/24 Procedure(s): XR foot RT min 3V Accession Number(s): [id number] cc: Ann Figueroa FNP; Rodriguez, Long Paz MD~ EXAMINATION: XR foot RT min 3V DATE: 10/10/2024 10:18 INDICATION: Right foot foreign body. Great toe pain. TECHNIQUE: 4 views of right foot were obtained. COMPARISON: None. FINDINGS: Alignment is normal. No fracture. Joint spaces are normal. There is a 6 mm linear radiopaque foreign body in the soft tissues plantar to first distal phalanx. IMPRESSION: 1. 6 mm linear radiopaque foreign body in the soft tissues plantar to first distal phalanx. Reviewed, dictated and finalized at location B. STRIAL REGISTERED NURSE Please be advised this is a medical document. It is intended for [id number] communication. It is written in medical language and may contain unfamiliar abbreviations or verbiage. Medical documents are intended to carry relevant information, facts as evident, and the clinical opinion of the practitioner at the time of the encounter. This report may have been done utilizing a voice recognition system. Attempts have been made to correct errors. However, there may be uncorrected grammatical, spelling, and recognition errors present. The file time of this note does not necessarily represent the time of service. Dictated By: Abundio Finley MD 10/10/24 1022 Signed By: <Electronically signed by Abundio Finley MD in OV> Discharge Plan Discharge Clinical Impression: Foreign body (FB) in soft tissue Patient Disposition: Home, Self-Care Condition: Stable Instructions: Antibiotic Form, Soft Tissue Foreign Body (ED) Additional Instructions: Follow-up with specialist. Emergency department for new or worse symptoms Patient Language: Luxembourger Prescriptions: No Action fluoxetine 40 mg capsule 40 mg PO DAILY cyclobenzaprine 10 mg tablet 10 mg PO DIRECTED olanzapine 10 mg tablet 10 mg PO DIRECTED hydroxyzine HCl 50 mg tablet 50 mg PO DIRECTED trazodone 100 mg tablet 100 mg PO DIRECTED hydrocodone-acetaminophen 7.5-325 mg tablet 1 tablet PO DIRECTED primidone 50 mg tablet 50 mg PO DAILY omeprazole 40 mg capsule,delayed release(DR/EC) 40 mg PO DAILY atorvastatin 20 mg tablet 20 mg DIRECTED albuterol sulfate 90 mcg/actuation HFA aerosol inhaler 90 mcg INHALATION DIRECTED Follow-up/Referrals: Dave Gibbons DPM [Physician] - Rodriguez,Long Paz MD [Primary Care Provider] - Time of Disposition: 10:52
== END 2024-10-10 11:00 | disposition home or self-care (01) ==
PROVIDERS: Emergency Provider Nurse Practitioner Family; PCP Internal Medicine Gastroenterology
DX: M79.5 Residual foreign body in soft tissue (principal); K22.70 Barrett's esophagus without dysplasia; J44.9 Chronic obstructive pulmonary disease, unspecified; E78.00 Pure hypercholesterolemia, unspecified; G62.9 Polyneuropathy, unspecified; Z86.711 Personal history of pulmonary embolism; F41.9 Anxiety disorder, unspecified; F32.A Depression, unspecified
CPT/HCPCS: 73630; 99213; G0463